=== PATIENT | female | born 1935 | race African-American/Black ===

== ENCOUNTER 2021-12-14 07:58 | Inpatient (IN) | payer OTHER ==
[~2021-12-14] VITALS: Ht 157.5 cm; Wt 53.1 kg
[2021-12-14 08:05] VITALS: BP_SYST 162; BP_SYST 166; BP_DIAS 69; BP_DIAS 92
[2021-12-14] MEDS ORDERED: KETOROLAC 15 MG/ML VIAL IVP ONE (09:10)
[2021-12-14] MEDS ORDERED: NACL 0.9% 1,000 ML IV ONE (09:10)
[2021-12-14 10:16] LABS: BASOPHILS % (AUTO) 0.1 % (0.0-2.0); HEMATOCRIT 38.2 % (36-48); HEMOGLOBIN 12.6 g/dL (12.0-16.0); LYMPHOCYTES # (AUTO) 0.7 K/uL (2.5-16.5); LYMPHOCYTES % (AUTO) 6.2 % (20.5-51.1); MEAN CORPUSCULAR HEMOGLOBIN 27 pg (27-31); MEAN CORPUSCULAR HGB CONC 33 g/dL (33-37); MEAN CORPUSCULAR VOLUME 83.2 fL (80-94); MONOCYTES # (AUTO) 0.9 K/uL (0.8-1.0); MONOCYTES % (AUTO) 7.6 % (1.7-9.3); NEUTROPHILS % (AUTO) 86.1 % (42.2-75.2); PLATELET COUNT (AUTO) 203 K/uL (140-450); RED CELL DISTRIBUTION WIDTH 14.7 % (11.6-13.7); WHITE BLOOD COUNT (AUTO) 11.7 K/uL (4.8-10.8)
[2021-12-14 10:21] LABS: PROTHROMBIN TIME 10.8 secs (10.8-13.4)
[2021-12-14 10:36] LABS: ALBUMIN 2.9 g/dL (3.4-5.0); ANION GAP 9.6 (8-16); ASPARTATE AMINOTRANSFERASE 19 U/L (15-37); CARBON DIOXIDE 28.6 mmol/L (21-32); CHLORIDE 106 mmol/L (98-107); CREATININE 0.7 mg/dL (0.6-1.3); GLUCOSE 111 mg/dL (74-106); POTASSIUM 3.2 mmol/L (3.5-5.1); SODIUM SERUM 141 mmol/L (136-145); TOTAL BILIRUBIN 1.1 mg/dL (0.0-1.0); UREA NITROGEN, BLOOD 13 mg/dL (7-18)
[2021-12-14] MEDS ORDERED: ASPIRIN 81 MG TAB.CHEW PO ONE (10:40)
[2021-12-14 11:04] LABS: APPEARANCE,URINE CLEAR (CLEAR); BILIRUBIN,URINE 1+ (NEGATIVE); BLOOD, URINE 1+ (NEGATIVE); COLOR,URINE ORANGE (YELLOW); LEUKOCYTE ESTERASE ,URINE NEGATIVE (NEGATIVE); NITRITE, URINE NEGATIVE (NEGATIVE); UGLUCOSE NEGATIVE (NEGATIVE)
[2021-12-14] MEDS ORDERED: ONDANSETRON 4 MG/2 ML VIAL IM/IVP PRN (11:25)
[2021-12-14] MEDS ORDERED: POTASSIUM CHLORIDE 10 MEQ TABER PO PRN (11:25)
[2021-12-14] MEDS ORDERED: guaiFENesin DM 200/20 MG-10 ML 10 ML UDC PO PRN (11:25)
[2021-12-14] MEDS ORDERED: ZOLPIDEM 5 MG TAB PO PRN (11:25)
[2021-12-14] MEDS ORDERED: DOCUSATE SODIUM 100 MG GELCAP PO PRN (11:25)
[2021-12-14] MEDS ORDERED: HYDROcodone/APAP 7.5/325 MG 1 TAB PO PRN (11:25)
[2021-12-14] MEDS ORDERED: POTASSIUM CHLORIDE 10 MEQ TABER PO SCH (11:29)
[2021-12-14 11:32] LABS: RBC,URINE 0-5 /HPF (0-5)
[2021-12-14 11:33] LABS: WBC,URINE 0-5 /HPF (0-5)
[2021-12-14 11:34] LABS: OTHER CASTS, URINE None Seen /LPF (None Seen)
[2021-12-14] MEDS: DEXT 5% /NACL 0.9% 1,000 ML IV SCH (11:43)
[2021-12-14 12:10] LABS: BARBITURATE, URINE NEGATIVE ng/ml (NEG <=200); BENZODIAZEPINE, URINE NEGATIVE ng/mL (NEG <=200); CANNABINOID, URINE NEGATIVE ng/mL (NEG <=50); COCAINE, URINE NEGATIVE ng/mL (NEG <=300); OPIATE, URINE NEGATIVE ng/mL (NEG <=2000); PHENCYCLIDINE SCREEN,URINE NEGATIVE ng/mL (NEG <=25)
[2021-12-14 12:20] LABS: MAGNESIUM 2.2 mg/dL (1.8-2.4); PHOSPHORUS 1.3 mg/dL (2.5-4.9)
[2021-12-14 13:22] LABS: CHOL/HDL RATIO 1.8 (1-4.5)
[2021-12-14 13:49] LABS: FREE T4 (FREE THYROXINE) 1.59 ng/dL (0.76-1.46); THYROID STIMULATING HORMONE 1.31 uIU/mL (0.34-3.74)
[2021-12-14 14:00] VITALS: BP 159/82
[2021-12-14 16:00] VITALS: BP 131/68
[2021-12-14] MEDS: ATORVASTATIN 20 MG TAB PO SCH (17:14)
[2021-12-14 20:00] VITALS: BP 142/62
[2021-12-14] MEDS: METOPROLOL 25 MG TAB PO SCH (21:32)
[2021-12-15] VITALS: BP 130/74
[2021-12-15 04:00] VITALS: BP 138/76
[2021-12-15] MEDS: ACETAMINOPHEN 325 MG TAB PO PRN (05:13)
[2021-12-15 06:24] LABS: BASOPHILS % (AUTO) 0.5 % (0.0-2.0); EOSINOPHILS # (AUTO) 0.1 K/uL (0-0.4); EOSINOPHILS % (AUTO) 1.1 % (0.0-4.0); HEMATOCRIT 34.3 % (36-48); HEMOGLOBIN 11.2 g/dL (12.0-16.0); LYMPHOCYTES # (AUTO) 1.7 K/uL (2.5-16.5); LYMPHOCYTES % (AUTO) 17.8 % (20.5-51.1); MEAN CORPUSCULAR HEMOGLOBIN 27 pg (27-31); MEAN CORPUSCULAR HGB CONC 33 g/dL (33-37); MEAN CORPUSCULAR VOLUME 83.1 fL (80-94); MONOCYTES # (AUTO) 0.7 K/uL (0.8-1.0); MONOCYTES % (AUTO) 7.4 % (1.7-9.3); NEUTROPHILS # (AUTO) 6.9 K/uL (1.8-7.7); NEUTROPHILS % (AUTO) 73.2 % (42.2-75.2); PLATELET COUNT (AUTO) 207 K/uL (140-450); RED BLOOD CELL COUNT(AUTO) 4.13 MIL/uL (4.20-5.40); RED CELL DISTRIBUTION WIDTH 14.5 % (11.6-13.7); WHITE BLOOD COUNT (AUTO) 9.4 K/uL (4.8-10.8)
[2021-12-15 06:37] LABS: ANION GAP 8.1 (8-16); CARBON DIOXIDE 27.5 mmol/L (21-32); CHLORIDE 108 mmol/L (98-107); CREATININE 0.6 mg/dL (0.6-1.3); GLUCOSE 95 mg/dL (74-106); POTASSIUM 3.6 mmol/L (3.5-5.1); SODIUM SERUM 140 mmol/L (136-145); UREA NITROGEN, BLOOD 13 mg/dL (7-18)
[2021-12-15 08:00] VITALS: BP 148/80
[2021-12-15 08:08] LABS: T4 (THYROXINE) 7.9 ug/dL (4.5-12.0)
[2021-12-15] MEDS: METOPROLOL 25 MG TAB PO SCH (09:03)
[2021-12-15] MEDS: PANTOPRAZOLE 40 MG TABEC PO SCH (09:03)
[2021-12-15] MEDS: lisinopriL 5 MG TAB PO SCH (09:03)
[2021-12-15] MEDS: DEXT 5% /NACL 0.9% 1,000 ML IV SCH (11:25)
[2021-12-15 12:00] VITALS: BP 138/80
[2021-12-15 16:00] VITALS: BP 128/72
[2021-12-15] MEDS: ATORVASTATIN 20 MG TAB PO SCH (16:34)
[2021-12-15 20:00] VITALS: BP 119/72
[2021-12-15] MEDS: carvediloL 6.25 MG TAB PO SCH (20:19)
[2021-12-16] VITALS: BP 121/63
[2021-12-16 04:00] VITALS: BP 116/60
[2021-12-16 05:15] LABS: BASOPHILS % (AUTO) 0.4 % (0.0-2.0); EOSINOPHILS # (AUTO) 0.2 K/uL (0-0.4); EOSINOPHILS % (AUTO) 3.2 % (0.0-4.0); HEMATOCRIT 30.7 % (36-48); HEMOGLOBIN 10.2 g/dL (12.0-16.0); LYMPHOCYTES # (AUTO) 1.6 K/uL (2.5-16.5); LYMPHOCYTES % (AUTO) 22.5 % (20.5-51.1); MEAN CORPUSCULAR HEMOGLOBIN 28 pg (27-31); MEAN CORPUSCULAR HGB CONC 33 g/dL (33-37); MONOCYTES # (AUTO) 0.7 K/uL (0.8-1.0); NEUTROPHILS # (AUTO) 4.7 K/uL (1.8-7.7); NEUTROPHILS % (AUTO) 64.9 % (42.2-75.2); PLATELET COUNT (AUTO) 207 K/uL (140-450); RED CELL DISTRIBUTION WIDTH 14.7 % (11.6-13.7); WHITE BLOOD COUNT (AUTO) 7.2 K/uL (4.8-10.8)
[2021-12-16 05:57] LABS: CARBON DIOXIDE 28.2 mmol/L (21-32); CREATININE 0.6 mg/dL (0.6-1.3); GLUCOSE 100 mg/dL (74-106); UREA NITROGEN, BLOOD 11 mg/dL (7-18)
[2021-12-16 06:34] LABS: ANION GAP 8.2 (8-16); CHLORIDE 106 mmol/L (98-107); POTASSIUM 3.4 mmol/L (3.5-5.1); SODIUM SERUM 139 mmol/L (136-145)
[2021-12-16] MEDS: lisinopriL 5 MG TAB PO SCH (09:00)
[2021-12-16] MEDS: PANTOPRAZOLE 40 MG TABEC PO SCH (09:08)
[2021-12-16] MEDS: ACETAMINOPHEN 325 MG TAB PO PRN (09:09)
[2021-12-16] MEDS: carvediloL 6.25 MG TAB PO SCH ×2 (09:11→20:28)
[2021-12-16 09:23] VITALS: BP 100/70
[2021-12-16] MEDS: DEXT 5% /NACL 0.9% 1,000 ML IV SCH (11:15)
[2021-12-16 12:03] VITALS: BP 116/61
[2021-12-16 16:00] VITALS: BP 140/76
[2021-12-16] MEDS: ATORVASTATIN 20 MG TAB PO SCH (16:01)
[2021-12-16 20:00] VITALS: BP 154/82
[2021-12-17] VITALS: BP 157/81
[2021-12-17 04:00] VITALS: BP 162/90
[2021-12-17] MEDS ORDERED: hydrALAZINE 20 MG/ML VIAL IVP PRN (04:00)
[2021-12-17 05:20] LABS: BASOPHILS % (AUTO) 0.7 % (0.0-2.0); EOSINOPHILS # (AUTO) 0.3 K/uL (0-0.4); EOSINOPHILS % (AUTO) 4.6 % (0.0-4.0); HEMOGLOBIN 11.4 g/dL (12.0-16.0); LYMPHOCYTES # (AUTO) 1.7 K/uL (2.5-16.5); MEAN CORPUSCULAR HEMOGLOBIN 27 pg (27-31); MEAN CORPUSCULAR HGB CONC 32 g/dL (33-37); MEAN CORPUSCULAR VOLUME 82.9 fL (80-94); MONOCYTES # (AUTO) 0.5 K/uL (0.8-1.0); MONOCYTES % (AUTO) 8.9 % (1.7-9.3); NEUTROPHILS # (AUTO) 3.3 K/uL (1.8-7.7); NEUTROPHILS % (AUTO) 56.8 % (42.2-75.2); PLATELET COUNT (AUTO) 248 K/uL (140-450); RED BLOOD CELL COUNT(AUTO) 4.23 MIL/uL (4.20-5.40); RED CELL DISTRIBUTION WIDTH 14.8 % (11.6-13.7); WHITE BLOOD COUNT (AUTO) 5.9 K/uL (4.8-10.8)
[2021-12-17 06:42] LABS: ANION GAP 7.5 (8-16); CARBON DIOXIDE 25.5 mmol/L (21-32); CHLORIDE 108 mmol/L (98-107); CREATININE 0.6 mg/dL (0.6-1.3); GLUCOSE 89 mg/dL (74-106); SODIUM SERUM 137 mmol/L (136-145); UREA NITROGEN, BLOOD 4 mg/dL (7-18)
[2021-12-17 08:00] VITALS: BP 136/64
[2021-12-17] MEDS ORDERED: lisinopriL 20 MG TAB PO SCH (09:00)
[2021-12-17] MEDS: PANTOPRAZOLE 40 MG TABEC PO SCH (09:10)
[2021-12-17] MEDS: carvediloL 6.25 MG TAB PO SCH (09:11)
[2021-12-17] MEDS ORDERED: LISI-487 PO (09:45)
[2021-12-17] MEDS ORDERED: CARV6.25 PO (09:45)
[2021-12-17] MEDS ORDERED: ATOR10TA PO (09:45)
== END 2021-12-17 16:05 | DRG 291 ==
LOC: MED 07:58 → MTU 11:23
PROVIDERS: ADMIT Family Medicine; ATTEND Family Medicine
DX: I11.0 Hypertensive heart disease with heart failure (principal); I50.43 Acute on chronic combined systolic (congestive) and diastolic (congestive) heart failure; G93.41 Metabolic encephalopathy; E44.0 Moderate protein-calorie malnutrition; I42.9 Cardiomyopathy, unspecified; R62.7 Adult failure to thrive; E86.0 Dehydration; Z20.822 Contact with and (suspected) exposure to COVID-19; E87.6 Hypokalemia; M17.0 Bilateral primary osteoarthritis of knee; I25.10 Atherosclerotic heart disease of native coronary artery without angina pectoris; Z68.21 Body mass index [BMI] 21.0-21.9, adult
CPT/HCPCS: 36415; 36600; 71045; 73562; 80048; 80053; 80305; 81001; 82150; 82550; 82553; 82803; 82948; 83036; 83605; 83690; 83735; 83874; 83880; 84100; 84436; 84439; 84443; 84479; 84484; 85025; 85610; 85730; 87040; 87081; 87086; 93005; 96361; 96374; 97110; 97112; 97116; 97163-GP; 97530; 99291; J0360; J1885; J7030

== ENCOUNTER 2023-03-06 13:23 | Inpatient (IN) | payer MEDICARE, MEDICAID ==
[~2023-03-06] VITALS: Ht 157.5 cm; Wt 75.7 kg
[~2023-03-06 13:23] MED LIST: ATOR10TA PO; CARV6.25 PO; LISI-487 PO
[2023-03-06 13:27] VITALS: BP 123/65; PULSE 67; RESP 17; TEMP 97.9; O2SAT 98
[2023-03-06 13:58] LABS: BASOPHILS % (AUTO) 0.6 % (0.0-2.0); EOSINOPHILS # (AUTO) 0.2 K/uL (0-0.4); EOSINOPHILS % (AUTO) 3.7 % (0.0-4.0); HEMATOCRIT 36.8 % (36-48); HEMOGLOBIN 12.2 g/dL (12.0-16.0); LYMPHOCYTES # (AUTO) 1.6 K/uL (2.5-16.5); LYMPHOCYTES % (AUTO) 34.7 % (20.5-51.1); MEAN CORPUSCULAR HEMOGLOBIN 28 pg (27-31); MEAN CORPUSCULAR HGB CONC 33 g/dL (33-37); MEAN CORPUSCULAR VOLUME 85.1 fL (80-94); MONOCYTES # (AUTO) 0.5 K/uL (0.8-1.0); MONOCYTES % (AUTO) 10.9 % (1.7-9.3); NEUTROPHILS # (AUTO) 2.3 K/uL (1.8-7.7); NEUTROPHILS % (AUTO) 50.1 % (42.2-75.2); PLATELET COUNT (AUTO) 144 K/uL (140-450); RED BLOOD CELL COUNT(AUTO) 4.33 MIL/uL (4.20-5.40); RED CELL DISTRIBUTION WIDTH 15.9 % (11.6-13.7); WHITE BLOOD COUNT (AUTO) 4.6 K/uL (4.8-10.8)
[2023-03-06 14:14] LABS: ALANINE AMINOTRANSFERASE 19 U/L (12-78); ALKALINE PHOSPHATASE 69 U/L (50-136); ASPARTATE AMINOTRANSFERASE 29 U/L (15-37); CALCIUM 8.1 mg/dL (8.5-10.1); CARBON DIOXIDE 28.3 mmol/L (21-32); CHLORIDE 106 mmol/L (98-107); CREATININE 0.9 mg/dL (0.6-1.3); GLUCOSE 84 mg/dL (74-106); POTASSIUM 4.3 mmol/L (3.5-5.1); SODIUM SERUM 139 mmol/L (136-145); TOTAL BILIRUBIN 0.4 mg/dL (0.0-1.0); TOTAL PROTEIN, SERUM 6.5 g/dL (6.4-8.2); UREA NITROGEN, BLOOD 17 mg/dL (7-18)
[2023-03-06 14:51] LABS: APPEARANCE,URINE CLEAR (CLEAR); BILIRUBIN,URINE 1+ (NEGATIVE); BLOOD, URINE NEGATIVE (NEGATIVE); COLOR,URINE ORANGE (YELLOW); LEUKOCYTE ESTERASE ,URINE TRACE (NEGATIVE); NITRITE, URINE NEGATIVE (NEGATIVE); PROTEIN,URINE 1+ (NEGATIVE); UGLUCOSE NEGATIVE (NEGATIVE)
[2023-03-06 15:29] VITALS: O2SAT 98
[2023-03-06 15:43] LABS: ICTOTEST NEGATIVE (NEGATIVE)
[2023-03-06 15:44] LABS: BACTERIA,URINE None Seen /HPF (None Seen); MUCUS,URINE 1+ /LPF (None Seen); RBC,URINE 0-5 /HPF (0-5); SQUAMOUS EPITHELIAL CELL,UR 0-3 (FEW) /LPF (0-3 (FEW)); TRICHOMONAS,URINE None Seen /HPF (None Seen); WBC,URINE 0-5 /HPF (0-5); YEAST,URINE None Seen /HPF (None Seen)
[2023-03-06] MEDS ORDERED: ASPIRIN 325 MG TAB PO ONE (16:10)
[2023-03-06 17:29] VITALS: O2SAT 98
[2023-03-06] MEDS ORDERED: MAGNESIUM OXIDE 400 MG TAB PO PRN (18:30)
[2023-03-06] MEDS ORDERED: ACETAMINOPHEN 325 MG TAB PO PRN (18:30)
[2023-03-06] MEDS ORDERED: MORPHINE SULFATE 2 MG/ML SYR IVP PRN (18:30)
[2023-03-06] MEDS ORDERED: ONDANSETRON 4 MG/2 ML VIAL IVP PRN (18:30)
[2023-03-06] MEDS ORDERED: POTASSIUM CHLORIDE 10 MEQ TABER PO PRN (18:30)
[2023-03-06] MEDS ORDERED: HYDROcodone/APAP 5/325 MG 1 TAB TAB PO PRN (18:30)
[2023-03-06] MEDS ORDERED: LORazepam 1 MG TAB PO PRN (18:30)
[2023-03-06] MEDS ORDERED: HALOPERIDOL IM 5 MG/ML VIAL IM ONE (20:00)
[2023-03-06 20:15] VITALS: BP 130/79; PULSE 69; RESP 16; TEMP 97.4; O2SAT 100; O2SAT 16; O2SAT 99
[2023-03-06 20:44] VITALS: PULSE 65
[2023-03-06] MEDS: FUROSEMIDE 20 MG/2 ML VIAL IVP SCH (22:54)
[2023-03-07] VITALS: BP 122/74; PULSE 56; PULSE 62; RESP 16; TEMP 97.3; O2SAT 99
[2023-03-07 04:00] VITALS: BP 125/74; PULSE 56; PULSE 63; RESP 16; TEMP 96.7; O2SAT 98
[2023-03-07 05:16] LABS: BASOPHILS % (AUTO) 0.8 % (0.0-2.0); EOSINOPHILS # (AUTO) 0.3 K/uL (0-0.4); EOSINOPHILS % (AUTO) 5.7 % (0.0-4.0); HEMATOCRIT 36.9 % (36-48); HEMOGLOBIN 12.1 g/dL (12.0-16.0); LYMPHOCYTES # (AUTO) 1.9 K/uL (2.5-16.5); LYMPHOCYTES % (AUTO) 41.4 % (20.5-51.1); MEAN CORPUSCULAR HEMOGLOBIN 28 pg (27-31); MEAN CORPUSCULAR HGB CONC 33 g/dL (33-37); MEAN CORPUSCULAR VOLUME 85.1 fL (80-94); MONOCYTES # (AUTO) 0.5 K/uL (0.8-1.0); MONOCYTES % (AUTO) 10.6 % (1.7-9.3); NEUTROPHILS # (AUTO) 1.9 K/uL (1.8-7.7); NEUTROPHILS % (AUTO) 41.5 % (42.2-75.2); PLATELET COUNT (AUTO) 134 K/uL (140-450); RED BLOOD CELL COUNT(AUTO) 4.33 MIL/uL (4.20-5.40); WHITE BLOOD COUNT (AUTO) 4.5 K/uL (4.8-10.8)
[2023-03-07 05:39] LABS: ANION GAP 8.2 (8-16); CALCIUM 7.8 mg/dL (8.5-10.1); CARBON DIOXIDE 28.5 mmol/L (21-32); CHLORIDE 105 mmol/L (98-107); CREATININE 0.8 mg/dL (0.6-1.3); GLUCOSE 72 mg/dL (74-106); POTASSIUM 3.7 mmol/L (3.5-5.1); SODIUM SERUM 138 mmol/L (136-145); UREA NITROGEN, BLOOD 14 mg/dL (7-18)
[2023-03-07 08:00] VITALS: BP 114/66; PULSE 54; RESP 18; TEMP 97.6; O2SAT 100
[2023-03-07] MEDS: FUROSEMIDE 20 MG/2 ML VIAL IVP SCH ×2 (09:48→17:58)
[2023-03-07] MEDS: DOCUSATE SODIUM 100 MG GELCAP PO SCH (09:48)
[2023-03-07 12:00] VITALS: BP 101/62; PULSE 61; PULSE 72; RESP 18; TEMP 97.8; O2SAT 100
[2023-03-07 16:00] VITALS: BP 112/75; PULSE 67; PULSE 74; RESP 18; TEMP 97.6; O2SAT 100
[2023-03-07 20:00] VITALS: BP 102/57; PULSE 63; PULSE 67; RESP 18; TEMP 98.3; O2SAT 100
[2023-03-07] MEDS: carvediloL 3.125 MG TAB PO SCH (20:37)
[2023-03-08] VITALS: BP 135/74; PULSE 70; PULSE 75; RESP 19; TEMP 97; O2SAT 99
[2023-03-08 04:00] VITALS: BP 113/76; PULSE 59; PULSE 68; RESP 18; TEMP 97.6; O2SAT 99
[2023-03-08 05:18] LABS: BASOPHILS % (AUTO) 0.5 % (0.0-2.0); EOSINOPHILS # (AUTO) 0.2 K/uL (0-0.4); EOSINOPHILS % (AUTO) 3.7 % (0.0-4.0); HEMOGLOBIN 12.3 g/dL (12.0-16.0); LYMPHOCYTES # (AUTO) 1.8 K/uL (2.5-16.5); LYMPHOCYTES % (AUTO) 35.7 % (20.5-51.1); MEAN CORPUSCULAR HEMOGLOBIN 28 pg (27-31); MEAN CORPUSCULAR HGB CONC 33 g/dL (33-37); MONOCYTES # (AUTO) 0.6 K/uL (0.8-1.0); NEUTROPHILS # (AUTO) 2.4 K/uL (1.8-7.7); NEUTROPHILS % (AUTO) 48.1 % (42.2-75.2); PLATELET COUNT (AUTO) 147 K/uL (140-450); RED BLOOD CELL COUNT(AUTO) 4.35 MIL/uL (4.20-5.40); RED CELL DISTRIBUTION WIDTH 15.8 % (11.6-13.7); WHITE BLOOD COUNT (AUTO) 5.1 K/uL (4.8-10.8)
[2023-03-08 05:52] LABS: ANION GAP 8.6 (8-16); CALCIUM 8.1 mg/dL (8.5-10.1); CARBON DIOXIDE 30.6 mmol/L (21-32); CHLORIDE 103 mmol/L (98-107); CREATININE 1.1 mg/dL (0.6-1.3); GLUCOSE 81 mg/dL (74-106); POTASSIUM 4.2 mmol/L (3.5-5.1); SODIUM SERUM 138 mmol/L (136-145); UREA NITROGEN, BLOOD 23 mg/dL (7-18)
[2023-03-08 08:00] VITALS: BP 145/87; PULSE 64; PULSE 88; RESP 18; TEMP 97.3; O2SAT 93; O2SAT 99
[2023-03-08] MEDS ORDERED: ECOTRIN 81 MG TABEC PO SCH (09:00)
[2023-03-08] MEDS ORDERED: lisinopriL 5 MG TAB PO SCH (09:00)
[2023-03-08] MEDS ORDERED: ATORVASTATIN 20 MG TAB PO SCH (09:00)
[2023-03-08] MEDS: carvediloL 3.125 MG TAB PO SCH (09:28)
[2023-03-08] MEDS: DOCUSATE SODIUM 100 MG GELCAP PO SCH (09:29)
[2023-03-08] MEDS: FUROSEMIDE 20 MG/2 ML VIAL IVP SCH (09:30)
[2023-03-08] MEDS ORDERED: FURO-570 PO (09:43)
[2023-03-08] MEDS ORDERED: POTA10TA70 PO (09:43)
== END 2023-03-08 13:50 | disposition home health service (06) | DRG 280 ==
LOC: MED 13:23 → OBSVTOIN 18:33 → MTU 18:33
PROVIDERS: ADMIT Student in an Organized Health Care Education/Training Program; ATTEND Student in an Organized Health Care Education/Training Program
DX: I11.0 Hypertensive heart disease with heart failure (principal); I50.23 Acute on chronic systolic (congestive) heart failure; I21.A1 Myocardial infarction type 2; E44.0 Moderate protein-calorie malnutrition; I42.9 Cardiomyopathy, unspecified; Z20.822 Contact with and (suspected) exposure to COVID-19; R62.7 Adult failure to thrive; I25.10 Atherosclerotic heart disease of native coronary artery without angina pectoris; Z79.899 Other long term (current) drug therapy; Z68.30 Body mass index [BMI] 30.0-30.9, adult; Z98.61 Coronary angioplasty status
CPT/HCPCS: 36415; 70450; 71045; 80048; 80053; 81001; 83880; 84484; 85025; 87081; 87086; 93005; 97116; 97163-GP; 97530; 99285; J1644; J1940

== ENCOUNTER 2023-04-14 16:19 | Emergency (ER) | payer MEDICARE, MEDICAID ==
[~2023-04-14] VITALS: Ht 157.5 cm; Wt 70.3 kg
[~2023-04-14 16:19] MED LIST changes: +FURO-570 PO; +POTA10TA70 PO
[2023-04-14 16:22] VITALS: BP 160/99; PULSE 76; RESP 17; TEMP 97.6; O2SAT 98
[2023-04-14 17:12] VITALS: O2SAT 98
[2023-04-14 17:34] LABS: BASOPHILS % (AUTO) 0.7 % (0.0-2.0); EOSINOPHILS # (AUTO) 0.2 K/uL (0-0.4); EOSINOPHILS % (AUTO) 4.7 % (0.0-4.0); HEMATOCRIT 35.2 % (36-48); HEMOGLOBIN 11.6 g/dL (12.0-16.0); LYMPHOCYTES # (AUTO) 1.9 K/uL (2.5-16.5); LYMPHOCYTES % (AUTO) 38.5 % (20.5-51.1); MEAN CORPUSCULAR HEMOGLOBIN 29 pg (27-31); MEAN CORPUSCULAR HGB CONC 33 g/dL (33-37); MEAN CORPUSCULAR VOLUME 87.3 fL (80-94); MONOCYTES # (AUTO) 0.5 K/uL (0.8-1.0); MONOCYTES % (AUTO) 9.8 % (1.7-9.3); NEUTROPHILS # (AUTO) 2.3 K/uL (1.8-7.7); NEUTROPHILS % (AUTO) 46.3 % (42.2-75.2); PLATELET COUNT (AUTO) 174 K/uL (140-450); RED BLOOD CELL COUNT(AUTO) 4.04 MIL/uL (4.20-5.40); RED CELL DISTRIBUTION WIDTH 15.7 % (11.6-13.7)
[2023-04-14 17:59] LABS: ALANINE AMINOTRANSFERASE 20 U/L (12-78); ALKALINE PHOSPHATASE 108 U/L (50-136); ANION GAP 9.3 (8-16); ASPARTATE AMINOTRANSFERASE 23 U/L (15-37); CALCIUM 8.4 mg/dL (8.5-10.1); CARBON DIOXIDE 28.4 mmol/L (21-32); CHLORIDE 111 mmol/L (98-107); CREATININE 0.8 mg/dL (0.6-1.3); GLUCOSE 80 mg/dL (74-106); POTASSIUM 3.7 mmol/L (3.5-5.1); SODIUM SERUM 145 mmol/L (136-145); TOTAL BILIRUBIN 0.3 mg/dL (0.0-1.0); TOTAL PROTEIN, SERUM 6.3 g/dL (6.4-8.2); UREA NITROGEN, BLOOD 7 mg/dL (7-18)
[2023-04-14] MEDS ORDERED: FURO-572 PO (19:46)
[2023-04-14 20:23] VITALS: BP 132/82; PULSE 81; RESP 16; TEMP 98; O2SAT 98
== END 2023-04-14 20:23 | disposition home or self-care (01) ==
LOC: MED 16:19
DX: R60.9 Edema, unspecified (principal); I11.0 Hypertensive heart disease with heart failure; I50.9 Heart failure, unspecified; Z79.899 Other long term (current) drug therapy
CPT/HCPCS: 36415; 71045; 80053; 83880; 84484; 85025; 93005; 99285